=== PATIENT | female | born 1985 | race Caucasian/White ===

== ENCOUNTER 2024-09-24 15:47 | Emergency (ER) | payer OTHER, SELFPAY ==
[2024-09-24 15:52] VITALS: BP 180/103; PULSE 90; RESP 20; TEMP 36.6; O2SAT 100; BMI 38.9
--- NOTE | 2024-09-24 15:57 | DI.RAD.S_ITS ---
PROCEDURE: XR ANKLE RT MIN 3V INDICATIONS: fall TECHNIQUE: 3 views of the ankle were acquired. COMPARISON: None. FINDINGS: Bones: No fractures or dislocations. Ankle mortise is normally aligned. No suspicious bony lesions. Soft tissues: No tibiotalar joint effusion. Achilles tendon appears normal. IMPRESSION: No acute bony abnormality or significant effusion. Approved by: Thai Mercado M.D. on 09/24/2024 at 15:38
--- NOTE | 2024-09-24 17:23 | ED_ITS ---
HPI - Extremity Injury (Lower) <Keyana Sánchez PA-C - Last Filed: 09/24/24 19:18> General Chief Complaint: Extremity Injury, Lower Stated Complaint: fell in a hole, rt ankle injury Time Seen by Provider: 09/24/24 17:14 Source: patient Mode of arrival: Ambulatory History of Present Illness HPI Narrative: Ms. Sheridan is a pleasant 31-year-old female with a past medical history prediabetes, prior left ankle injuries and surgeries who presents to the emergency department for right ankle pain after an injury that occurred prior to arrival. Patient states she was running after her young child playing at the [employer] when she accidentally stepped her right ankle in a hole in the grass causing it to roll. She would immediate pain and heard a popping sound. Patient has been unable to move her ankle and bear weight on the right ankle since his injury. At this time she states that the majority of the pain is on the lateral aspect of the ankle where there is swelling. No open wounds. States that her toes are starting to feel tingly. No medications prior to arrival, no other injuries. No head trauma or LOC. Related Data Allergies Allergy/AdvReac Type Severity Reaction Status Date / Time codeine Allergy Verified 09/24/24 17:49 Review of Systems <Keyana Sánchez PA-C - Last Filed: 09/24/24 19:18> Review of Systems ROS Unobtainable: All systems reviewed & are unremarkable except as noted in HPI and below Patient History <Keyana Sánchez PA-C - Last Filed: 09/24/24 19:18> Social History Smoking Status: Never smoker Smoking Status: Never smoker Exam <Keyana Sánchez PA-C - Last Filed: 09/24/24 19:18> Narrative Exam Narrative: GENERAL: 39 year old patient appears stated age. Well-developed patient, in no acute distress. HEAD: Atraumatic. Normocephalic. NECK: Trachea midline. Cervical ROM intact. CARDIOVASCULAR: Regular rate RESPIRATORY: ?Nonlabored respirations. ?Speaking in clear, full sentences. EXTREMITIES: Edema of the right lateral malleolus. Tenderness to palpation just distal and posterior to the lateral malleolus. Strong DP and PT pulses bilaterally and brisk capillary refill on all toes. No tenderness to palpation of the dorsal midfoot, toes or medial ankle on the right. Patient does have some chronic swelling/deformity from prior surgery of the left ankle. No tenderness to palpation of the remainder of the lower extremities. NEURO: AOx3. ?Clear speech. ?Moves all 4 extremities appropriately with the exception of right ankle. Patient is able to plantar and dorsiflex the right foot however with pain. SKIN: No ecchymosis, erythema, abrasions or lacerations. Initial Vital Signs Initial Vital Signs: Vital Signs Temperature 98 F 09/24/24 15:52 Pulse Rate 90 09/24/24 15:52 Respiratory Rate 20 09/24/24 15:52 Blood Pressure 180/103 H 09/24/24 15:52 Pulse Oximetry 100 09/24/24 15:52 Oxygen Delivery Method Room Air 09/24/24 15:52 <DO Ellyn Barrera Last Filed: 09/29/24 10:13> Initial Vital Signs Initial Vital Signs: Vital Signs Temperature 98 F 09/24/24 15:52 Pulse Rate 90 09/24/24 15:52 Respiratory Rate 20 09/24/24 15:52 Blood Pressure 180/103 H 09/24/24 15:52 Pulse Oximetry 100 09/24/24 15:52 Oxygen Delivery Method Room Air 09/24/24 15:52 Course <Keyana Sánchez PA-C - Last Filed: 09/24/24 19:18> Orders Ordered: Discontinued Medications Ibuprofen (Ibuprofen 400 Mg Tablet) 600 mg PO NOW ONE Stop: 09/24/24 17:39 Last Admin: 09/24/24 17:50 Dose: 600 mg Documented By: ALBA Vital Signs Vital signs: Vital Signs - 8 hr 09/24/24 15:52 09/24/24 18:00 Temperature 98 F Pulse Rate 90 74 Respiratory Rate 20 16 Blood Pressure 180/103 H 141/87 H Pulse Oximetry 100 99 Oxygen Delivery Method Room Air Room Air <DO Ellyn Barrera Last Filed: 09/29/24 10:13> Orders Ordered: Discontinued Medications Ibuprofen (Ibuprofen 400 Mg Tablet) 600 mg PO NOW ONE Stop: 09/24/24 17:39 Last Admin: 09/24/24 17:50 Dose: 600 mg Documented By: BS Vital Signs Vital signs: Vital Signs - 8 hr 09/24/24 15:52 09/24/24 18:00 Temperature 98 F Pulse Rate 90 74 Respiratory Rate 20 16 Blood Pressure 180/103 H 141/87 H Pulse Oximetry 100 99 Oxygen Delivery Method Room Air Room Air MDM - Extremity Injury (Lower) <Keyana Sánchez PA-C - Last Filed: 09/24/24 19:18> Medical Records Medical records narrative: None available Imaging Data Right Ankle X-Ray: My Impression: On my independent interpretation there is no fracture of the right lateral malleolus. Radiologist's Impression: PROCEDURE: XR ANKLE RT MIN 3V INDICATIONS: fall TECHNIQUE: 3 views of the ankle were acquired. COMPARISON: None. FINDINGS: Bones: No fractures or dislocations. Ankle mortise is normally aligned. No suspicious bony lesions. Soft tissues: No tibiotalar joint effusion. Achilles tendon appears normal. IMPRESSION: No acute bony abnormality or significant effusion. MDM Narrative Medical decision making narrative: 31-year-old female with a past medical history prediabetes, prior left ankle injuries and surgeries who presents to the emergency department for right ankle pain after an injury that occurred prior to arrival. No obvious deformities, no bruising, no wounds. Patient is unable to bear weight because of the pain. Differential diagnosis includes was not limited to right ankle sprain, strain, fracture, etc. On exam the patient is in no acute distress, nontoxic appearing, vital signs appropriate except for mildly elevated blood pressure in triage. Physical exam reveals swelling over the right lateral malleolus with tenderness. Lower extremities are neurovascularly intact. Right ankle x-ray obtained in triage reveals no acute bony abnormality or significant effusion. Patient's symptoms and physical exam are consistent with a Grade II-III ankle sprain, possibly calcaneofibular ligament, after shared decision-making with the patient we will treat with crutches and right ankle air splint. Recommended she continues to use the crutches until she can weight bear as tolerated. Recommended strict rice therapy and follow up with Orthopedics for further management. We will give 1st dose of ibuprofen in the emergency department, advised continued ibuprofen/acetaminophen as needed for home. ED return precautions discussed, patient feels comfortable using her own crutches that she brought with to the emergency department, she is agreeable to the plan and stable for discharge home. Discharge Plan Departure Patient Disposition: Home Clinical Impression: Right ankle sprain Qualifiers: Encounter type: initial encounter Involved ligament of ankle: unspecified ligament Qualified Code(s): S93.401A - Sprain of unspecified ligament of right ankle, initial encounter Instructions: DI for Ankle Sprain Activity Restrictions/Additional Instructions: Dear Sherlyn Arivn, Thank you for coming to the emergency department. Today you were evaluated for a right ankle injury. Your x-ray does not reveal any fractures or dislocations. X-rays not tell us about soft tissue injuries or ligament injuries. You have been placed into a temporary splint and I do recommend that you continue to use crutches until you do not have pain with walking on the ankle. Please call to schedule an appointment with [facility] for follow up management. Please use RICE therapy for your pain in addition to ibuprofen/acetaminophen. Rest the painful area. Ice the area of pain/swelling for at least 15 minutes, 4x a day. Compress the area of swelling using a brace, wrap, or splint if applied. Elevate the painful or swollen extremity by supporting it above the level of the heart with pillows when sitting or laying. Please take Ibuprofen (Motrin/Advil) or Acetaminophen (Tylenol) for pain. These are available over the counter. You may take Ibuprofen 600 mg every 8 hours with food for pain. You may also take Acetaminophen 650 mg every 4-6 hours for pain. Do not exceed 3000 mg of Tylenol a day as this can cause liver damage. Do not drink alcohol with either of these medications. Please follow up with your primary care doctor within the next 2-3 days for ER follow-up. (If you do not have a PCP you can call [phone]. ?to schedule an appointment with an [facility] Primary Care Provider) IF YOU DEVELOP ANY NEW OR WORSENING SYMPTOMS, RETURN TO THE ER! Please read the attached instructions, they highlight more specific treatments and interventions for you at home. Thank you for letting me participate in your care, Keyana Sánchez PA-C Referrals: Provider,Keith DAY [Primary Care Provider] - Tylor Pitt MD [Physician] - (right ankle sprain ) Stand Alone Forms: Patient Portal/API/Survey, Work Release Note ED Sign-out <Rebecca Alston DO - Last Filed: 09/29/24 10:13> Cosign ED Attending Cosignature Attestation: I was immediately available in the department for consultation.
[2024-09-24] MEDS: IBUPROFEN 400 MG TABLET 600 MG PO (17:50)
[2024-09-24 18:00] VITALS: BP 141/87; PULSE 74; RESP 16; O2SAT 99
== END 2024-09-24 18:00 | disposition home or self-care (01) ==
PROVIDERS: Emergency Provider Physician Assistant
DX: S93.401A Sprain of unspecified ligament of right ankle, initial encounter (principal); W18.30XA Fall on same level, unspecified, initial encounter
CPT/HCPCS: 29540; 73610; 99283

== ENCOUNTER → 2025-03-21 15:12 | Outpatient (CLI) | payer OTHER, SELFPAY ==
--- NOTE | 2025-03-21 15:13 | DI.CT.S_ITS ---
PROCEDURE: CT HEAD/BRAIN WO CON INDICATIONS: CONCUSSION W/O LOSS OF CONSCIOUSNESS TECHNIQUE: Noncontrast 4.5 mm thick angled axial sections acquired from the foramen magnum to the vertex, with coronal and sagittal reformats. For radiation dose reduction, the following was used: automated exposure control, adjustment of mA and/or kV according to patient size. COMPARISON: None. FINDINGS: Image quality: Diagnostic. CSF spaces: Basal cisterns are patent. No extra-axial fluid collections. Ventricles are normal in size and shape. Brain: No midline shift. No intracranial mass effect or hemorrhage. White- white matter interface is normal. Skull and face: Calvarium and visualized facial bones are intact, without suspicious lesions. Sinuses: Visualized sinuses and mastoids are clear. IMPRESSION: No acute intracranial pathology. Dictated by: Jeramy Hernandez M.D. on 03/21/2025 at 16:08 Approved by: Jeramy Hernandez M.D. on 03/21/2025 at 16:09
== END ==
LOC: CT 15:12
PROVIDERS: Referring Provider Family Medicine; Visit Provider Family Medicine
DX: S06.0X0A Concussion without loss of consciousness, initial encounter (principal)
CPT/HCPCS: 70450

== ENCOUNTER 2025-05-28 22:34 | Emergency (ER) | payer OTHER, SELFPAY ==
--- NOTE | 2025-05-28 22:40 | EKG_ITS ---
[address] [address] Test Date: 2025-05-28 Pat Name: Amairani Sheridan Department: Room: Gender: Female Human Resources Benefits Administrator: CECE : 1985 Requested By: Order Number: [id number] Reading MD: Dean Sellers Measurements Intervals [place] Rate: 89 P: 31 MN: 150 QRS: 49 QRSD: 78 T: 16 QT: 352 QTc: 428 Interpretive Statements Normal sinus rhythm Electronically Signed On 05-30-2025 15:03:26 PST by Dean Sellers
--- NOTE | 2025-05-28 22:46 | DI.RAD.S_ITS ---
PROCEDURE: XR CHEST 1V INDICATIONS: Chest Pain TECHNIQUE: One view of the chest was acquired. COMPARISON: None. FINDINGS: Surgical changes and devices: None. Lungs and pleura: Lungs are clear. No pleural effusions or pneumothorax. Mediastinum: Mediastinal contours appear normal. Heart size is normal. Bones and chest wall: No suspicious bony lesions. Overlying soft tissues appear unremarkable. IMPRESSION: No acute pulmonary process. Dictated by: Bessie Yanez M.D. on 05/28/2025 at 23:19 Approved by: Bessie Yanez M.D. on 05/28/2025 at 23:20
[2025-05-28 22:47] VITALS: BP 189/102; PULSE 86; RESP 20; O2SAT 100; BMI 38.9
[2025-05-28 22:52] VITALS: TEMP 35.8
[2025-05-28 22:54] VITALS: BMI 38.9
--- NOTE | 2025-05-28 22:56 | ED.CHESTPAIN ---
HPI - Chest Pain General Chief Complaint: Chest Pain Stated Complaint: Chest Pain, Back Pain, L Shoulder Pain Time Seen by Provider: 05/28/25 22:56 Source: patient Mode of arrival: Ambulatory Limitations: no limitations History of Present Illness HPI narrative: 39-year-old female without history of known coronary artery disease, no history of VTE, complains of 2 week duration left anterior sharp chest discomfort, radiates to her left neck arm shoulder. Had phone consultation with PCP who prescribed omeprazole, not helping so far. No history of diabetes but might be prediabetic, no antihypertensive therapy, no hyperlipidemia known, nonsmoker, brother had heart attack similar/earlier age. Related Data Allergies Allergy/AdvReac Type Severity Reaction Status Date / Time codeine Allergy Verified 05/28/25 22:52 Exam Narrative Exam Narrative: GENERAL: Well-developed patient, in mild distress. HEAD: Atraumatic. Normocephalic. EYES: Pupils equal round and reactive. Extraocular motions intact. No scleral icterus. No injection or drainage. ENT: Nose without bleeding, purulent drainage. Throat without erythema, tonsillar hypertrophy or exudate. Airway patent. NECK: Trachea midline. Non tender CARDIOVASCULAR: Regular rate and rhythm without murmurs, gallops, or rubs. RESPIRATORY: Clear to auscultation. Breath sounds equal bilaterally. No wheezes, rales, or rhonchi. GASTROINTESTINAL: Abdomen soft, non-tender, nondistended. EXTREMITIES: No edema or joint tenderness. BACK: Nontender without deformity or crepitance. No flank tenderness. NEURO: AOx3. Motor functions grossly nonfocal. SKIN: No rash or erythema of visible areas Initial Vital Signs Initial Vital Signs: Vital Signs Pulse Rate 86 05/28/25 22:47 Respiratory Rate 20 05/28/25 22:47 Blood Pressure 189/102 H 05/28/25 22:47 Pulse Oximetry 100 05/28/25 22:47 Oxygen Delivery Method Room Air 05/28/25 22:47 Scores HEART Score Heart Score history: Slightly Suspicious Heart Score EKG: Normal Heart Score Age: < 45 years old Heart Score risk factors: No known risk factors Heart Score troponin: < or = to normal limit Heart Score Total: 0 Course Orders Ordered: ED Orders 05/28/25 22:45 Complete Blood Count AUTO DIFF Stat Comprehensive Metabolic Panel Stat D Dimer Stat Lipase Stat Magnesium Stat NT-proBNP (BNP-Adult 18+) Stat PTT Partial Thromboplastin Yony Stat Prothrombin Time INR Stat Troponin & CK Cardiac Panel Stat 05/28/25 22:46 XR chest 1V Stat EKG-12 Lead Stat 05/28/25 23:57 CT angio chest PE protocol Stat 05/29/25 00:45 EKG-12 Lead Stat 05/29/25 00:50 Trop I [Troponin I] Stat Discontinued Medications Aspirin (Aspirin 81 Mg Chew Tab) 324 mg PO NOW ONE Stop: 05/28/25 22:47 Last Admin: 05/28/25 23:53 Dose: 324 mg Documented By: DONA Sodium Chloride (Normal Saline 0.9%) 1,000 mls @ 500 mls/hr IV BOLUS ONE Stop: 05/29/25 01:57 Last Infusion: 05/29/25 01:40 Dose: Infused Documented By: Admin: 05/29/25 00:38 Dose: 500 mls/hr Documented By: DONA Ketorolac Tromethamine (Ketorolac 30 Mg/Ml Vial) 15 mg IV NOW ONE Stop: 05/28/25 23:08 Last Admin: 05/28/25 23:52 Dose: 15 mg Documented By: DONA Vital Signs Vital signs: Vital Signs - 8 hr 05/29/25 00:06 05/29/25 00:07 05/29/25 00:22 Pulse Rate 87 81 Respiratory Rate 22 16 Blood Pressure 142/81 H 136/84 Pulse Oximetry 95 96 Oxygen Delivery Method Room Air 05/29/25 00:22 05/29/25 00:30 05/29/25 01:00 Pulse Rate 83 86 78 Respiratory Rate 22 18 18 Blood Pressure Pulse Oximetry 98 97 96 Oxygen Delivery Method Room Air 05/29/25 01:00 05/29/25 01:30 05/29/25 02:00 Pulse Rate 84 78 Respiratory Rate 22 17 Blood Pressure 140/86 Pulse Oximetry 96 97 Oxygen Delivery Method Room Air 05/29/25 02:00 Pulse Rate Respiratory Rate Blood Pressure 137/86 Pulse Oximetry Oxygen Delivery Method MDM - Chest Pain Lab Data Attestation: I reviewed the patient's lab results. Lab results narrative: White blood cell count 68801, hemoglobin 12.2, platelets adequate. Glucose 161. Normal renal function, serum CO2, electrolytes. Liver functions and lipase normal. Troponin negative/unmeasurable. 05/28/25 22:45 05/28/25 22:45 Labs: Lab Results 05/28/25 05/29/25 Range/Units 22:45 00:50 WBC 12.1 H (4.5-11.0) X10^3/uL RBC 4.55 (4.0-5.2) X10^6/uL Hgb 12.2 (12.0-16.0) g/dL Hct 36.4 (36-46) % MCV 80.0 (80-100) fL MCH 26.8 (26-34) PG MCHC 33.6 (30-36) % RDW 14.4 (11.6-14.8) % Plt Count 383 (150-400) X10^3/uL Neut % (Auto) 68.4 (50-75) % Lymph % (Auto) 22.4 L (25-40) % [place] % (Auto) 6.2 (3-14) % Eos % (Auto) 1.8 L (2-4) % Baso % (Auto) 1.2 (0-2) % Neut # (Auto) 8300 H (3310-9036) /uL Lymph # (Auto) 2700 (5189-1128) /uL [place] # (Auto) 800 (0-900) /uL Eos # (Auto) 200 (0-450) /uL Baso # (Auto) 100 (0-100) /uL PT 10.4 (9.4-12.5) SECONDS INR 0.9 (0.9-1.3) APTT 30 (25.1-36.5) SECONDS D-Dimer 499 (<500) ng/ml Sodium 141 (137-145) mmol/L Potassium 3.9 (3.4-5.1) mmol/L Chloride 105 (98-107) mmol/L Carbon Dioxide 27 (22-32) mmol/L BUN 22 H (7-17) mg/dL Creatinine 0.98 (0.52-1.04) mg/dL Estimated GFR > 60 (>60) mL/min BUN/Creatinine Ratio 22.4 H (6-22) Glucose 161 H (70-99) mg/dL Calcium 9.6 (8.4-10.2) mg/dL Magnesium 1.7 (1.6-2.3) mg/dL Total Bilirubin 0.4 (0.2-1.3) mg/dL AST 27 (14-36) IU/L ALT 28 (<35) IU/L Alkaline Phosphatase 84 (38-126) U/L Total Creatine Kinase 79 (30-135) U/L Troponin I < 0.012 < 0.012 (0.01-0.034) ng/mL NT-Pro-B Natriuret Pep < 20 (<125) pg/mL Total Protein 7.7 (6.3-8.2) g/dL Albumin 4.7 (3.5-5.0) g/dL Globulin 3.0 (1.7-4.1) g/dL Albumin/Globulin Ratio 1.6 (1.0-2.8) Lipase 88 (23-300) U/L Imaging Data CTA chest PE protocol: Radiologist's Impression: [address] [address] [address] Scan Report Signed Patient: Amairani Sheridan MR#: [id number] : 1985 Acct:[id number] Age/Sex: 39 / F Date of Service: 05/28/25 Loc: ED Accession Number: [id number] Procedure: CT angio chest PE protocol Ordering Provider: Darrel Gutiérrez MD PROCEDURE: CT ANGIO CHEST PE PROTOCOL INDICATIONS: CONSTANTINE ant chest pain, Dd+ TECHNIQUE: After the administration of intravenous contrast, 2 mm thick sections acquired from the pulmonary apices to the posterior costophrenic angles. 3-dimensional maximum intensity projection (MIP) coronal and sagittal reformats were then acquired through the thorax. For radiation dose reduction, the following was used: automated exposure control, adjustment of mA and/or kV according to patient size. COMPARISON: [facility], CR, XR CHEST 1V, 05/28/2025, 22:54. FINDINGS: Image quality: Diagnostic. Pulmonary arteries: Pulmonary arteries are normal in size, and demonstrate no intraluminal filling defects to suggest central pulmonary embolism. Lower Neck: No enlarged lymph nodes. Thyroid: No thyroid nodules which require sonographic follow up, per consensus guidelines. Axillae: No enlarged lymph nodes. Chest Wall: Unremarkable. Bones: Unremarkable. Lungs and Pleura: No pneumothorax or pleural effusions. No consolidation or suspicious nodules. Heart: Heart size is normal. No pericardial effusion. Thoracic Vessels: No aortic aneurysm. Mediastinum and Laura: No enlarged lymph nodes. Esophagus: No wall thickening. Mild hiatal hernia. Upper Abdomen: Visualized upper abdomen solid organs and bowel loops appear normal. IMPRESSION: No pulmonary embolus. No acute cardiopulmonary process. Dictated by: Bessie Yanez M.D. on 05/29/2025 at 0:32 Approved by: Bessie Yanez M.D. on 05/29/2025 at 0:33 Chest x-ray: Radiologist's Impression: [address] [address] XRay Report Signed Patient: Amairani Sheridan MR#: [id number] : 1985 Acct:[id number] Age/Sex: 39 / F Date of Service: 05/28/25 Loc: ED Accession Number: [id number] Procedure: XR chest 1V Ordering Provider: Leeanne Maldonado MD PROCEDURE: XR CHEST 1V INDICATIONS: Chest Pain TECHNIQUE: One view of the chest was acquired. COMPARISON: None. FINDINGS: Surgical changes and devices: None. Lungs and pleura: Lungs are clear. No pleural effusions or pneumothorax. Mediastinum: Mediastinal contours appear normal. Heart size is normal. Bones and chest wall: No suspicious bony lesions. Overlying soft tissues appear unremarkable. IMPRESSION: No acute pulmonary process. Dictated by: Bessie Yanez M.D. on 05/28/2025 at 23:19 Approved by: Bessie Yanez M.D. on 05/28/2025 at 23:20 ECG Data Attestation: I personally reviewed and interpreted this ECG as follows: Interpretation: 2240, normal sinus rhythm with rate 89, no obvious ST segment elevation or depression changes. IL 150, QRS 78, QTC 428. [facility] Narrative Medical decision making narrative: 39-year-old female with left anterior upper chest discomfort radiating to arm and neck, equivocal tenderness on examination. No recent coughing. Afebrile, sirs screen negative. EKG, chest x-ray, labs pending. IV Toradol. Heart score equals 0 EKG shows sinus rhythm without obvious ischemic changes. Chest x-ray no acute changes, see radiology report. Lab data intital: White blood cell count 46371, hemoglobin 12.2, platelets adequate. Glucose 161. Normal renal function, serum CO2, electrolytes. Liver functions and lipase normal. Troponin negative/unmeasurable. D-dimer added 499, will obtain CTA chest. Patient agreeable CTA chest PE protocol, no PE, no acute cardiopulmonary changes, see radiology report. Interval repeat troponin pending. Interval troponin also negative. Further workup as an outpatient for now, low risk heart score, though she does have family history with brother who had CAD events at similar/younger age. Given contact information for local painter and body mechanic apprentice Dr. Worthington, might need referral from PCP. Expressed understanding of the plan. Return precautions discussed. Discharged home. Discharge Plan Departure Patient Disposition: Home Clinical Impression: Atypical chest pain Activity Restrictions/Additional Instructions: Left upper anterior chest pain of unclear cause. EKG and serial blood tests not suggestive of heart attack changes at this time. Chest x-ray unremarkable. CT scan angiogram of the chest showed no blood clots to the lungs, no aortic problems, no acute changes in the heart or lung tissue or other structures identified. It might be possible this could be musculoskeletal in some way, consider use of ibuprofen. Recheck with your regular doctor in the next couple of days. Consider further evaluation testing as an outpatient, given contact information for the office of local painter and body mechanic apprentice Dr. Rudolph, though you might require referral from your primary care provider. Return to this/nearest emergency department for any change worsening symptoms or concerns prior. Referrals: Michael Worthington MD [Physician, Cardiology] Provider,Keith DAY [Primary Care Provider, Family Practice] Stand Alone Forms: Patient Portal/API
[2025-05-28 23:03] LABS: Add Manual Diff / Slide Review NO; Hematocrit 36.4 % (36-46); Hemoglobin 12.2 g/dL (12.0-16.0); Lymphocytes Absolute Auto 2700 /uL (1100-4500); Mean Corpuscular HGB Conc 33.6 % (30-36); Mean Corpuscular Hemoglobin 26.8 PG (26-34); Mean Corpuscular Volume 80.0 fL (80-100); Platelet Count 383 X10^3/uL (150-400)
[2025-05-28 23:22] LABS: Alanine Aminotransferase 28 IU/L (<35); Albumin 4.7 g/dL (3.5-5.0); Albumin Globulin Ratio 1.6 (1.0-2.8); Alkaline Phosphatase 84 U/L (38-126); Blood Urea Nitrogen 22 mg/dL (7-17); Calcium 9.6 mg/dL (8.4-10.2); Carbon Dioxide 27 mmol/L (22-32); Chloride 105 mmol/L (98-107); Creatine Kinase 79 U/L (30-135); Estimated Glomerular Filt Rate > 60 mL/min (>60); Globulin 3.0 g/dL (1.7-4.1); Glucose 161 mg/dL (70-99); HEMOLYSIS < 15 (0-50); Lipase 88 U/L (23-300); Magnesium 1.7 mg/dL (1.6-2.3); Potassium 3.9 mmol/L (3.4-5.1); Sodium 141 mmol/L (137-145); Total Protein 7.7 g/dL (6.3-8.2)
[2025-05-28 23:34] LABS: NT-proBNP (BNP-Adult 18+) < 20 pg/mL (<125); Troponin I < 0.012 ng/mL (0.01-0.034)
[2025-05-28 23:43] LABS: INR 0.9 (0.9-1.3); Prothrombin Time 10.4 SECONDS (9.4-12.5)
[2025-05-28 23:46] LABS: PTT Partial Thromboplastin Tim 30 SECONDS (25.1-36.5)
[2025-05-28] MEDS: KETOROLAC 30 MG/ML VIAL 15 MG IV (23:52)
[2025-05-28] MEDS: ASPIRIN 81 MG CHEW TAB 324 MG PO (23:53)
--- NOTE | 2025-05-28 23:57 | DI.CT.S_ITS ---
PROCEDURE: CT ANGIO CHEST PE PROTOCOL INDICATIONS: CONSTANTINE ant chest pain, Dd+ TECHNIQUE: After the administration of intravenous contrast, 2 mm thick sections acquired from the pulmonary apices to the posterior costophrenic angles. 3-dimensional maximum intensity projection (MIP) coronal and sagittal reformats were then acquired through the thorax. For radiation dose reduction, the following was used: automated exposure control, adjustment of mA and/or kV according to patient size. COMPARISON: [facility], CR, XR CHEST 1V, 05/28/2025, 22:54. FINDINGS: Image quality: Diagnostic. Pulmonary arteries: Pulmonary arteries are normal in size, and demonstrate no intraluminal filling defects to suggest central pulmonary embolism. Lower Neck: No enlarged lymph nodes. Thyroid: No thyroid nodules which require sonographic follow up, per consensus guidelines. Axillae: No enlarged lymph nodes. Chest Wall: Unremarkable. Bones: Unremarkable. Lungs and Pleura: No pneumothorax or pleural effusions. No consolidation or suspicious nodules. Heart: Heart size is normal. No pericardial effusion. Thoracic Vessels: No aortic aneurysm. Mediastinum and Laura: No enlarged lymph nodes. Esophagus: No wall thickening. Mild hiatal hernia. Upper Abdomen: Visualized upper abdomen solid organs and bowel loops appear normal. IMPRESSION: No pulmonary embolus. No acute cardiopulmonary process. Dictated by: Bessie Yanez M.D. on 05/29/2025 at 0:32 Approved by: Bessie Yanez M.D. on 05/29/2025 at 0:33
[2025-05-29] VITALS (7 sets, daily range): BP systolic 136–142; BP diastolic 81–86; PULSE 78–87; RESP 16–22; O2SAT 95–98
[2025-05-29] MEDS: SODIUM CHLORIDE 0.9% 1,000 ML 500 ML IV (00:38)
--- NOTE | 2025-05-29 00:53 | PC.NURSE ---
Pt has been placed by PCP on Propanolol over 2 months ago, also in the last 2 weeks started on omeprazole. No changed in intermittent left chest/breast pain.
--- NOTE | 2025-05-29 00:55 | PC.NURSE ---
IV placed prior to this nurse taking over care
[2025-05-29 01:49] LABS: Troponin I < 0.012 ng/mL (0.01-0.034)
== END 2025-05-29 02:21 | disposition home or self-care (01) ==
PROVIDERS: Student in an Organized Health Care Education/Training Program; Emergency Provider Emergency Medicine
DX: R07.89 Other chest pain (principal); M54.9 Dorsalgia, unspecified; M25.512 Pain in left shoulder; M54.2 Cervicalgia
CPT/HCPCS: 71045; 71275; 80053; 82550; 83690; 83735; 83880; 84484; 85025; 85379; 85610; 85730; 93005; 96361; 96374; 99284; J1885; J7030; Q9967